=== PATIENT | female | born 1990 | race Two or more races ===

== ENCOUNTER 2022-10-16 09:52 | Emergency (ER) | payer MEDICAID, OTHER ==
[~2022-10-16] VITALS: Ht 160 cm; Wt 71.6 kg
[2022-10-16 10:11] VITALS: BP 120/77
== END 2022-10-16 13:23 | disposition left against medical advice (07) ==
LOC: ER 09:52
DX: H57.12 Ocular pain, left eye (principal); H57.89 Other specified disorders of eye and adnexa; Z53.21 Procedure and treatment not carried out due to patient leaving prior to being seen by health care provider